=== PATIENT | male | born 1995 | race Caucasian/White ===

== ENCOUNTER 2020-05-06 14:34 | Emergency (ER) | payer OTHER ==
[~2020-05-06 14:34] MED LIST: BACTRIM 400-801 EACH PO; KEFLEX CAP 500500 MG PO
[2020-05-06 15:35] LABS: HEMOGLOBIN 15.7 gm/dl (14.0-17.5); RED BLOOD COUNT 5.24 M/UL (4.20-5.50)
[2020-05-06 16:13] LABS: BUN/CREATININE RATIO 17 (0-10)
[2020-05-06] MEDS ORDERED: ZOFRAN4 MG PO (18:07)
[2020-05-06] MEDS ORDERED: BENTYL 10MG CAP10 MG PO (18:07)
== END 2020-05-06 18:16 | disposition home or self-care (01) ==
LOC: ER1 14:34
PROVIDERS: Physician Assistant Medical
DX: R10.11 Right upper quadrant pain (principal); R10.12 Left upper quadrant pain; R11.2 Nausea with vomiting, unspecified; R19.7 Diarrhea, unspecified; F17.200 Nicotine dependence, unspecified, uncomplicated
CPT/HCPCS: 36415; 80053; 81001; 82150; 83605; 83690; 85025; 85652; 86140; 99284; Q9967

== ENCOUNTER 2020-10-18 08:45 | Emergency (ER) | payer OTHER ==
[~2020-10-18 08:45] MED LIST changes: +BENTYL 10MG CAP10 MG PO; +ZOFRAN4 MG PO
== END 2020-10-18 11:07 | disposition home or self-care (01) ==
LOC: ER1 08:45
DX: S01.312A Laceration without foreign body of left ear, initial encounter (principal); F17.210 Nicotine dependence, cigarettes, uncomplicated; W22.8XXA Striking against or struck by other objects, initial encounter
CPT/HCPCS: 12011; 99282

== ENCOUNTER 2020-11-17 15:32 | Emergency (ER) | payer OTHER ==
[2020-11-17] MEDS ORDERED: NORFLEX 100 MG100 MG PO (16:45)
[2020-11-17] MEDS ORDERED: IBUPROFEN600 MG PO (16:45)
== END 2020-11-17 16:47 | disposition home or self-care (01) ==
LOC: ER1 15:32
DX: M54.5 Low back pain (principal); M54.6 Pain in thoracic spine; F17.210 Nicotine dependence, cigarettes, uncomplicated; V49.40XA Driver injured in collision with unspecified motor vehicles in traffic accident, initial encounter; Y92.410 Unspecified street and highway as the place of occurrence of the external cause
CPT/HCPCS: 72072; 72100; 99283

== ENCOUNTER 2021-06-16 14:48 | Emergency (ER) | payer OTHER ==
[~2021-06-16 14:48] MED LIST changes: +IBUPROFEN600 MG PO; +NORFLEX 100 MG100 MG PO
[2021-06-16] MEDS ORDERED: IBUPROFEN600 MG PO (15:59)
== END 2021-06-16 16:04 | disposition home or self-care (01) ==
LOC: ER1 14:48
DX: S93.401A Sprain of unspecified ligament of right ankle, initial encounter (principal); W22.8XXA Striking against or struck by other objects, initial encounter
CPT/HCPCS: 73600; 73620; 99283

== ENCOUNTER 2021-08-19 10:25 | Emergency (ER) | payer OTHER ==
[2021-08-19] MEDS ORDERED: CEPHALEXIN500 MG PO (10:53)
[2021-08-19] MEDS ORDERED: BACTRIM 400-801 EACH PO (10:53)
== END 2021-08-19 11:10 | disposition home or self-care (01) ==
LOC: ER1 10:25
DX: L03.316 Cellulitis of umbilicus (principal)
CPT/HCPCS: 99283